=== PATIENT | female | born 1950 | race Caucasian/White ===

== ENCOUNTER 2021-09-02 21:45 | Observation (INO) | payer MEDICARE, BC ==
[2021-09-02 22:26] LABS: #Eosinphils 0.1 10x3/uL (0.0-0.5); #Monocytes 0.4 10x3/uL (0.0-1.1); %Basophils 0.4 % (0.0-2.0); %Eosinophils 2.1 % (0.0-6.0); %Lymphocytes 18.4 % (18.0-47.0); %Monocytes 7.6 % (0.0-10.0); Mean Corpuscular HGB CONC 30.6 g/dL (32.0-36.0); Mean Corpuscular Hemoglobin 30.2 pg (27.0-33.0); Mean Corpuscular Volume 98.6 fl (81.6-98.3); Mean Platelet Volume 8.7 fl (7.4-10.4); Platelet Count 210 10x3/uL (150-450); RBC Distribution Width 15.8 % (11.5-14.5); Red Blood Cell (RBC) Count 3.64 10x6/uL (3.90-5.03); White Blood Cell (WBC) Count 5.7 10x3/uL (3.5-10.5)
[2021-09-02 22:35] LABS: ALT (SGPT) 14 U/L (8-55); AST (SGOT) 12 U/L (5-34); Albumin 4.1 g/dL (3.4-4.8); Alkaline Phosphatase 132 U/L (40-110); Anion Gap 12 mmol/L (10-20); BUN (Urea Nitrogen) 23 mg/dL (9.8-20.1); Bilirubin, Total 0.5 mg/dL (0.2-1.2); Calc. Creatinine Clearance 0 mL/min (70-130); Calcium 8.8 mg/dL (7.8-10.44); Carbon Dioxide 27 mmol/L (23-31); Chloride 105 mmol/L (98-107); Globulin 2.4 g/dL (2.4-3.5); Glucose 164 mg/dL (83-110); Potassium 4.2 mmol/L (3.5-5.1); Protein, Total 6.5 g/dL (5.8-8.1); Sodium 140 mmol/L (136-145)
[2021-09-02] MEDS ORDERED: Ketorolac Tromethamine 30 MG/ML VIAL ONE (22:45)
[2021-09-02] MEDS ORDERED: Acetaminophen 500 MG TAB ONE (22:46)
[2021-09-02 22:58] LABS: CKMB 1.9 ng/mL (0-6.6)
[2021-09-02 23:07] LABS: SARS-CoV-2 NAA Rapid Test Not Detected (NotDetected)
[2021-09-03] MEDS ORDERED: Aspirin 325 MG TAB ONE (00:04)
[2021-09-03] MEDS ORDERED: Senokot S 8.6-50 MG TAB PO PRN (00:59)
[2021-09-03] MEDS ORDERED: Acetaminophen 500 MG TAB PO SCH (01:00)
[2021-09-03] MEDS ORDERED: Fentanyl 100 MCG/2 ML VIAL SLOW IVP SCH (01:00)
[2021-09-03] MEDS ORDERED: Morphine 4 MG/ML VIAL SLOW IVP PRN (01:12)
[2021-09-03] MEDS ORDERED: Acetaminophen 500 MG TAB ONE (01:33)
[2021-09-03] MEDS ORDERED: Fentanyl 100 MCG/2 ML VIAL ONE (01:33)
[2021-09-03 02:25] LABS: Magnesium 2.1 mg/dL (1.6-2.6)
[2021-09-03] MEDS ORDERED: Ondansetron PF 4 MG/2 ML Vial ONE (02:33)
[2021-09-03] MEDS ORDERED: Ondansetron PF 4 MG/2 ML Vial IVP SCH (02:45)
[2021-09-03 04:02] LABS: #Eosinphils 0.2 10x3/uL (0.0-0.5); #Monocytes 0.5 10x3/uL (0.0-1.1); #Neutrophils 2.4 10x3/uL (1.5-8.4); %Basophils 0.7 % (0.0-2.0); %Eosinophils 3.5 % (0.0-6.0); %Lymphocytes 28.6 % (18.0-47.0); %Monocytes 11.1 % (0.0-10.0); %Neutrophils 55.6 % (40.0-75.0); Hemoglobin 10.1 g/dL (12.0-15.5); Mean Corpuscular HGB CONC 30.7 g/dL (32.0-36.0); Mean Corpuscular Hemoglobin 30.4 pg (27.0-33.0); Mean Corpuscular Volume 99.1 fl (81.6-98.3); Mean Platelet Volume 9.3 fl (7.4-10.4); Platelet Count 203 10x3/uL (150-450); RBC Distribution Width 15.5 % (11.5-14.5); Red Blood Cell (RBC) Count 3.32 10x6/uL (3.90-5.03); White Blood Cell (WBC) Count 4.3 10x3/uL (3.5-10.5)
[2021-09-03 04:14] LABS: Troponin I 0.012 ng/mL (< 0.028)
[2021-09-03 04:19] LABS: Anion Gap 12 mmol/L (10-20); BUN (Urea Nitrogen) 23 mg/dL (9.8-20.1); Calc. Creatinine Clearance 0 mL/min (70-130); Calcium 8.7 mg/dL (7.8-10.44); Carbon Dioxide 27 mmol/L (23-31); Chloride 105 mmol/L (98-107); Glucose 97 mg/dL (83-110); Sodium 140 mmol/L (136-145)
[2021-09-03] MEDS ORDERED: Morphine 4 MG/ML VIAL ONE (06:51)
[2021-09-03] MEDS: Amlodipine 5 MG TAB PO SCH (09:00)
[2021-09-03] MEDS: Fish Oil 1,000 MG CAP PO SCH (09:15)
[2021-09-03] MEDS: Lisinopril 10 MG TAB PO SCH (09:15)
[2021-09-03] MEDS: Aspirin 81 mg Enteric Coated Tablet PO SCH (09:16)
[2021-09-03] MEDS: Atorvastatin Calcium 40 MG TAB PO SCH (09:17)
[2021-09-03] MEDS: Cholecalciferol 1,000 UNITS (25 MCG) TAB PO SCH (09:17)
[2021-09-03] MEDS: oxyCODONE 5 MG TAB PO PRN ×2 (09:18→14:32)
[2021-09-03] MEDS: Ezetimibe 10 MG TAB PO SCH (09:18)
[2021-09-03] MEDS: Docusate 100 MG CAP PO SCH ×2 (09:18→22:02)
[2021-09-03] MEDS: Carvedilol 6.25 MG TAB PO SCH ×2 (09:18→16:21)
[2021-09-03] MEDS: Multivit, Therapeutic 1 TAB PO SCH (09:19)
[2021-09-03] MEDS: Spironolactone 25 MG TAB PO SCH ×2 (09:19→17:19)
[2021-09-03] MEDS: Enoxaparin Sodium 40 MG/0.4 ML SYRINGE SC SCH (09:20)
[2021-09-03] MEDS: Polyethylene Glycol 3350 17 GM Packet PO SCH (09:21)
[2021-09-03 11:54] VITALS: BMI 31.6
[2021-09-03] MEDS: Morphine 4 MG/ML VIAL SLOW IVP SCH ×2 (18:30→22:02)
[2021-09-04] MEDS: oxyCODONE 5 MG TAB PO PRN ×3 (00:06→08:57)
[2021-09-04] MEDS: Morphine 4 MG/ML VIAL SLOW IVP SCH ×7 (02:04→22:46)
[2021-09-04] MEDS: Polyethylene Glycol 3350 17 GM Packet PO SCH ×2 (08:10→08:17)
[2021-09-04] MEDS: Docusate 100 MG CAP PO SCH ×2 (08:11→21:37)
[2021-09-04] MEDS: Aspirin 81 mg Enteric Coated Tablet PO SCH (08:11)
[2021-09-04] MEDS: Amlodipine 5 MG TAB PO SCH (08:11)
[2021-09-04] MEDS: Atorvastatin Calcium 40 MG TAB PO SCH (08:11)
[2021-09-04] MEDS: Multivit, Therapeutic 1 TAB PO SCH (08:12)
[2021-09-04] MEDS: Lisinopril 10 MG TAB PO SCH (08:12)
[2021-09-04] MEDS: Fish Oil 1,000 MG CAP PO SCH (08:12)
[2021-09-04] MEDS: Spironolactone 25 MG TAB PO SCH ×2 (08:12→16:29)
[2021-09-04] MEDS: Ezetimibe 10 MG TAB PO SCH (08:12)
[2021-09-04] MEDS: Cholecalciferol 1,000 UNITS (25 MCG) TAB PO SCH (08:13)
[2021-09-04] MEDS: Enoxaparin Sodium 40 MG/0.4 ML SYRINGE SC SCH (08:13)
[2021-09-04] MEDS: Carvedilol 6.25 MG TAB PO SCH ×2 (08:13→16:29)
[2021-09-04] MEDS ORDERED: Ondansetron PF 4 MG/2 ML Vial IVP PRN (10:54)
[2021-09-04] MEDS ORDERED: Ondansetron ODT 4 MG TAB SL PRN (11:38)
[2021-09-04] MEDS: Gabapentin 300 MG CAP PO SCH ×2 (14:53→21:37)
[2021-09-04] MEDS: tiZANidine HCl 4 MG TAB PO SCH ×2 (14:53→21:40)
[2021-09-04] MEDS: Acetaminophen 500 MG TAB PO SCH ×2 (14:54→21:39)
[2021-09-04] MEDS ORDERED: Oxymetazoline HCl 0.05% ( 15 ML ) NASAL PRN (21:53)
[2021-09-05] MEDS: Morphine 4 MG/ML VIAL SLOW IVP SCH ×6 (02:49→22:30)
[2021-09-05 08:19] LABS: #Eosinphils 0.1 10x3/uL (0.0-0.5); #Monocytes 0.4 10x3/uL (0.0-1.1); %Basophils 0.2 % (0.0-2.0); %Eosinophils 2.4 % (0.0-6.0); %Lymphocytes 22.3 % (18.0-47.0); %Monocytes 8.3 % (0.0-10.0); %Neutrophils 66.4 % (40.0-75.0); Hemoglobin 10.3 g/dL (12.0-15.5); Mean Corpuscular HGB CONC 30.8 g/dL (32.0-36.0); Mean Corpuscular Hemoglobin 30.4 pg (27.0-33.0); Mean Corpuscular Volume 98.5 fl (81.6-98.3); Mean Platelet Volume 9.2 fl (7.4-10.4); Platelet Count 202 10x3/uL (150-450); RBC Distribution Width 15.6 % (11.5-14.5); Red Blood Cell (RBC) Count 3.39 10x6/uL (3.90-5.03); White Blood Cell (WBC) Count 4.6 10x3/uL (3.5-10.5)
[2021-09-05] MEDS: Docusate 100 MG CAP PO SCH ×2 (08:26→20:13)
[2021-09-05] MEDS: Fish Oil 1,000 MG CAP PO SCH (08:26)
[2021-09-05] MEDS: Cholecalciferol 1,000 UNITS (25 MCG) TAB PO SCH (08:26)
[2021-09-05] MEDS: Multivit, Therapeutic 1 TAB PO SCH (08:26)
[2021-09-05] MEDS: Spironolactone 25 MG TAB PO SCH ×2 (08:27→18:02)
[2021-09-05] MEDS: Gabapentin 300 MG CAP PO SCH ×3 (08:27→20:13)
[2021-09-05] MEDS: Lisinopril 10 MG TAB PO SCH (08:27)
[2021-09-05] MEDS: tiZANidine HCl 4 MG TAB PO SCH ×3 (08:27→20:16)
[2021-09-05] MEDS: Enoxaparin Sodium 40 MG/0.4 ML SYRINGE SC SCH (08:27)
[2021-09-05] MEDS: Atorvastatin Calcium 40 MG TAB PO SCH (08:27)
[2021-09-05] MEDS: Aspirin 81 mg Enteric Coated Tablet PO SCH (08:28)
[2021-09-05] MEDS: Ezetimibe 10 MG TAB PO SCH (08:28)
[2021-09-05] MEDS: Acetaminophen 500 MG TAB PO SCH ×3 (08:28→20:14)
[2021-09-05] MEDS: Amlodipine 5 MG TAB PO SCH (08:28)
[2021-09-05] MEDS: Carvedilol 6.25 MG TAB PO SCH ×2 (08:28→18:02)
[2021-09-05] MEDS: Polyethylene Glycol 3350 17 GM Packet PO SCH (08:29)
[2021-09-05 08:31] LABS: Anion Gap 11 mmol/L (10-20); BUN (Urea Nitrogen) 16 mg/dL (9.8-20.1); Calc. Creatinine Clearance 84 mL/min (70-130); Calcium 9.1 mg/dL (7.8-10.44); Carbon Dioxide 33 mmol/L (23-31); Chloride 100 mmol/L (98-107); Glucose 89 mg/dL (83-110); Potassium 4.3 mmol/L (3.5-5.1); Sodium 140 mmol/L (136-145)
[2021-09-05] MEDS: oxyCODONE 5 MG TAB PO PRN ×2 (18:10→22:23)
[2021-09-06] MEDS: oxyCODONE 5 MG TAB PO PRN ×2 (02:08→11:10)
[2021-09-06] MEDS: Morphine 4 MG/ML VIAL SLOW IVP SCH ×3 (03:07→11:12)
[2021-09-06] MEDS: Acetaminophen 500 MG TAB PO SCH (04:47)
[2021-09-06 05:08] LABS: #Eosinphils 0.1 10x3/uL (0.0-0.5); #Monocytes 0.5 10x3/uL (0.0-1.1); #Neutrophils 2.6 10x3/uL (1.5-8.4); %Basophils 0.4 % (0.0-2.0); %Eosinophils 3.1 % (0.0-6.0); %Lymphocytes 28.5 % (18.0-47.0); %Monocytes 10.8 % (0.0-10.0); %Neutrophils 56.8 % (40.0-75.0); Hemoglobin 10.3 g/dL (12.0-15.5); Mean Corpuscular HGB CONC 31.9 g/dL (32.0-36.0); Mean Corpuscular Hemoglobin 30.6 pg (27.0-33.0); Mean Corpuscular Volume 95.8 fl (81.6-98.3); Mean Platelet Volume 9.2 fl (7.4-10.4); Platelet Count 191 10x3/uL (150-450); RBC Distribution Width 15.5 % (11.5-14.5); Red Blood Cell (RBC) Count 3.37 10x6/uL (3.90-5.03); White Blood Cell (WBC) Count 4.5 10x3/uL (3.5-10.5)
[2021-09-06 05:11] LABS: Anion Gap 12 mmol/L (10-20); BUN (Urea Nitrogen) 17 mg/dL (9.8-20.1); Calc. Creatinine Clearance 83 mL/min (70-130); Carbon Dioxide 31 mmol/L (23-31); Chloride 103 mmol/L (98-107); Potassium 4.1 mmol/L (3.5-5.1); Sodium 142 mmol/L (136-145)
[2021-09-06 05:12] LABS: Calcium 9.1 mg/dL (7.8-10.44); Glucose 82 mg/dL (83-110)
[2021-09-06] MEDS: Gabapentin 300 MG CAP PO SCH (09:07)
[2021-09-06] MEDS: Carvedilol 6.25 MG TAB PO SCH (09:08)
[2021-09-06] MEDS: Multivit, Therapeutic 1 TAB PO SCH (09:08)
[2021-09-06] MEDS: Lisinopril 10 MG TAB PO SCH (09:08)
[2021-09-06] MEDS: tiZANidine HCl 4 MG TAB PO SCH (09:08)
[2021-09-06] MEDS: Ezetimibe 10 MG TAB PO SCH (09:09)
[2021-09-06] MEDS: Spironolactone 25 MG TAB PO SCH (09:09)
[2021-09-06] MEDS: Atorvastatin Calcium 40 MG TAB PO SCH (09:09)
[2021-09-06] MEDS: Amlodipine 5 MG TAB PO SCH (09:10)
[2021-09-06] MEDS: Docusate 100 MG CAP PO SCH (09:10)
[2021-09-06] MEDS: Cholecalciferol 1,000 UNITS (25 MCG) TAB PO SCH (09:10)
[2021-09-06] MEDS: Enoxaparin Sodium 40 MG/0.4 ML SYRINGE SC SCH (09:10)
[2021-09-06] MEDS: Aspirin 81 mg Enteric Coated Tablet PO SCH (09:10)
[2021-09-06] MEDS: Fish Oil 1,000 MG CAP PO SCH (09:10)
[2021-09-06] MEDS: Polyethylene Glycol 3350 17 GM Packet PO SCH (09:11)
[2021-09-06 11:50] VITALS: TEMP 97.6
[2021-09-06 12:22] VITALS: BP 170/83
== END 2021-09-06 13:50 | disposition home or self-care (01) ==
LOC: CSHERS 21:45 → INTOOBSV 21:46 → CSHERHOLD 21:46 → UNDOADMOB 21:46 → CSHERHOLD 09-03 00:59 → OBSVTOIN 09-03 00:59 → INTOOBSV 09-03 00:59 → CSHERHOLD 09-03 08:42 → CSHTELE 09-03 08:42
PROVIDERS: ADMIT Family Medicine; ATTEND Internal Medicine
DX: S22.031A Stable burst fracture of third thoracic vertebra, initial encounter for closed fracture (principal); S22.051A Stable burst fracture of T5-T6 vertebra, initial encounter for closed fracture; S22.061A Stable burst fracture of T7-T8 vertebra, initial encounter for closed fracture; R09.02 Hypoxemia; I25.10 Atherosclerotic heart disease of native coronary artery without angina pectoris; I73.9 Peripheral vascular disease, unspecified; K55.20 Angiodysplasia of colon without hemorrhage; D50.0 Iron deficiency anemia secondary to blood loss (chronic); I12.9 Hypertensive chronic kidney disease with stage 1 through stage 4 chronic kidney disease, or unspecified chronic kidney disease; N18.32 Chronic kidney disease, stage 3b; E66.9 Obesity, unspecified; Z79.899 Other long term (current) drug therapy; Z95.1 Presence of aortocoronary bypass graft; Z87.891 Personal history of nicotine dependence; Z20.822 Contact with and (suspected) exposure to COVID-19
CPT/HCPCS: 0240U; 71045 ×2; 71275; 72070; 80048 ×3; 80053; 82553; 83735; 83880; 84484 ×3; 85025 ×4; 85379; 93005 ×2; 94760 ×3; 96372 ×4; 96374; 96375 ×2; 96376 ×3; 97110; 97116 ×2; 97139 ×4; 97530; 99285; G0378 ×5; 36415; 93010; J1650; J1885; J2270; J2405; J3010